=== PATIENT | male | born 1945 | race Caucasian/White ===

== ENCOUNTER → 2017-08-13 | Outpatient (CLI) | payer MEDICARE ==
[~2017-08-13] MED LIST: AMOX1TAB64 PO; CIPR250T27 PO; CIPR500T3 PO; HYDR-3240 PO; HYDR1TAB12 PO; IBUP-1484 PO; LACT1CAP4 PO; METR500T PO; NONE PER PT; OXYC-302 PO
[2017-08-13 14:22] LABS: HEMATOCRIT 44.2 % (39.2-51.8); HEMOGLOBIN 14.6 g/dL (13.7-18.0); WHITE BLOOD COUNT 8.3 x10^3/uL (3.4-10)
[2017-08-13 14:33] LABS: BLOOD UREA NITROGEN 14 mg/dL (7-18)
[2017-08-13 14:44] LABS: ASPARTATE AMINO TRANSFERASE 11 U/L (15-37)
== END | disposition home or self-care (01) ==
LOC: STAR 12:35
PROVIDERS: ATTEND Surgery
DX: Z01.818 Encounter for other preprocedural examination (principal); R94.31 Abnormal electrocardiogram [ECG] [EKG]
CPT/HCPCS: 36415; 71020; 80053; 85025; 93005

== ENCOUNTER 2017-08-19 08:50 | Day surgery (SDC) | payer MEDICARE ==
[~2017-08-19] VITALS: Ht 177.8 cm; Wt 62.7 kg
[~2017-08-19 08:50] MED LIST changes: +FENTANYL PF 100 MCG/2ML ONE; +MIDAZOLAM 1 MG/ML, 2ML ONE
[2017-08-19 09:50] VITALS: BP 133/76
[2017-08-19] MEDS ORDERED: LACTATED RINGERS 1,000 ML IV SCH (10:09)
[2017-08-19] MEDS ORDERED: PROPOFOL 10 MG/ML, 20ML ONE (12:38)
[2017-08-19] MEDS ORDERED: ONDANSETRON 2MG/ML, 2ML ONE (12:38)
[2017-08-19] MEDS ORDERED: CEFAZOLIN 1,000 MG ONE (12:38)
[2017-08-19] MEDS ORDERED: SUCCINYLCHOLINE 20 MG/ML, 10ML ONE (12:38)
[2017-08-19] MEDS ORDERED: ROCURONIUM 10 MG/ML ONE ×2 (12:38)
[2017-08-19] MEDS ORDERED: KETOROLAC 30 MG/1 ML ONE (12:38)
[2017-08-19] MEDS ORDERED: BUPIVACAINE/PF 0.5% ONE (12:56)
[2017-08-19] MEDS ORDERED: OXYcodone 5 MG/5 ML ORAL.SOL UDC ONE (14:18)
[2017-08-19] MEDS ORDERED: ACETAMINOPHEN 650 MG/20.3 ML UDC ONE (14:18)
[2017-08-19] MEDS ORDERED: FENTANYL PF 100 MCG/2ML ONE (14:18)
[2017-08-19] MEDS ORDERED: OXYcodone 5 MG/5 ML ORAL.SOL UDC PO PRN (14:30)
[2017-08-19] MEDS ORDERED: FENTANYL PF 100 MCG/2ML IV PRN (14:30)
[2017-08-19] MEDS ORDERED: ONDANSETRON 2MG/ML, 2ML IVPush PRN (14:30)
[2017-08-19] MEDS ORDERED: hydrALAzine 20 MG/ML, 1ML IV PRN (14:30)
[2017-08-19] MEDS ORDERED: HYDROmorphone 1 MG/ML, 1ML IV PRN (14:30)
[2017-08-19] MEDS ORDERED: ACETAMINOPHEN 325 MG TABLET PO PRN (14:30)
[2017-08-19] MEDS ORDERED: LABETALOL 5MG/ML, 20ML IV PRN (14:30)
[2017-08-19] MEDS ORDERED: METOCLOPRAMIDE 5 MG/ML, 2ML IV PRN (14:30)
== END 2017-08-19 16:05 | disposition home or self-care (01) ==
LOC: OUT 08:50
PROVIDERS: ATTEND Surgery
DX: K40.90 Unilateral inguinal hernia, without obstruction or gangrene, not specified as recurrent (principal); Z98.890 Other specified postprocedural states
CPT/HCPCS: 49650; C1781; J0330; J0690; J1885; J2250; J2405; J2704; J3010; J3490; J7120

== ENCOUNTER 2019-04-07 03:15 | Emergency (ER) | payer MEDICARE ==
[~2019-04-07] VITALS: Ht 172.7 cm; Wt 59.2 kg
[~2019-04-07 03:15] MED LIST changes: -FENTANYL PF 100 MCG/2ML ONE; -HYDR1TAB12 PO; +HYDR1TAB13 PO; -MIDAZOLAM 1 MG/ML, 2ML ONE
[2019-04-07 03:17] VITALS: BP 177/90
--- NOTE | 2019-04-07 03:40 | NUR ---
Pt in gown in [facility]. BETH Cano at for pt history and assessment. pt educated about er process and poc and verbalizes understanding. pt educated on need to be npo at this time. pt has call light within reach. Awaiting orders
[2019-04-07 04:41] LABS: BASOPHILS # (AUTO) 0.09 x10^3/uL (0-0.1); BASOPHILS % (AUTO) 1 % (0-1); EOSINOPHILS # (AUTO) 0.23 x10^3/uL (0-0.4); EOSINOPHILS % (AUTO) 3 % (1-7); LYMPHOCYTES # (AUTO) 1.83 x10^3/uL (1-3.4); LYMPHOCYTES % (AUTO) 26 % (22-44); MD NO; MEAN CORPUSCULAR HEMOGLOBIN 31.4 pg (27.5-34.5); MEAN CORPUSCULAR HGB CONC 32.9 g/dL (33.2-36.2); MEAN CORPUSCULAR VOLUME 95.3 fL (81-97); MEAN PLATELET VOLUME 9.1 fL (7.4-10.4); MONOCYTES # (AUTO) 0.64 x10^3/uL (0.2-0.8); MONOCYTES % (AUTO) 9 % (2-9); NEUTROPHILS # (AUTO) 4.38 x10^3/uL (1.8-6.8); NEUTROPHILS % (AUTO) 61 % (42-75); PLATELET COUNT 208 x10^3/uL (130-400); RED BLOOD COUNT 4.15 x10^6/uL (4.38-5.82); RED CELL DISTRIBUTION WIDTH 13.4 % (9.4-14.8)
[2019-04-07 04:50] LABS: INTERNATIONAL NORMALIZED RATIO 0.98 (0.93-1.1); PROTHROMBIN TIME 10.3 Seconds (9.6-11.5)
[2019-04-07 04:55] LABS: ALBUMIN 3.6 g/dL (3.4-5.0); ANION GAP 7 mmol/L (5-15); CALCIUM 9.1 mg/dL (8.5-10.1); CHLORIDE 110 mmol/L (98-107)
[2019-04-07 04:59] LABS: ALANINE AMINOTRANSFERASE 24 U/L (12-78); ALKALINE PHOSPHATASE 64 U/L (45-117); BILIRUBIN,TOTAL 0.3 mg/dL (0.2-1.0); CREATININE 1.16 mg/dL (0.7-1.3); TOTAL PROTEIN 6.6 g/dL (6.4-8.2)
--- NOTE | 2019-04-07 05:03 | NUR ---
PT AMBULATED TO RESTROOM. HAT PROVIDED TO OBTAIN STOOL SAMPLE. DR NAVA AT BS WITH PT.
--- NOTE | 2019-04-07 06:04 | NUR ---
pt d/c with d/c summary and scripts. all questions answered. pt ambulates to registration desk with steady gait for d/c home. pt denies any other needs pertaining to this visit.
== END 2019-04-07 06:06 | disposition home or self-care (01) ==
LOC: ED 05:16
DX: K62.5 Hemorrhage of anus and rectum (principal); Z86.14 Personal history of Methicillin resistant Staphylococcus aureus infection
CPT/HCPCS: 36415; 80053; 83690; 85025; 85610; 85730; 99283